=== PATIENT | male | born 1995 | race Caucasian/White ===

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

== ENCOUNTER 2019-11-13 11:05 | Emergency (ER) | payer OTHER ==
[~2019-11-13] VITALS: Ht 180.3 cm; Wt 89.8 kg
== END 2019-11-13 12:03 | disposition home or self-care (01) ==
LOC: ED 11:05
PROC: 0CQ0XZZ Repair Upper Lip, External Approach (ICD-10-PCS; principal; 2019-11-13)
DX: S01.511A Laceration without foreign body of lip, initial encounter (principal); W22.8XXA Striking against or struck by other objects, initial encounter
CPT/HCPCS: 12011; 99282-25